=== PATIENT | female | born 1985 | race Asian ===

== ENCOUNTER 2020-08-09 19:42 | Emergency (ER) | payer OTHER ==
[~2020-08-09] VITALS: Ht 167.6 cm; Wt 47.6 kg
[2020-08-09] MEDS ORDERED: FOLIC ACID-VIT1 EACH PO (21:33)
[2020-08-09] MEDS ORDERED: FERROUS SULFAT325 MG PO (21:33)
[2020-08-09 21:49] VITALS: BP 118/84
== END 2020-08-09 21:49 | disposition home or self-care (01) ==
LOC: FSED 19:53
DX: R00.2 Palpitations (principal); D64.9 Anemia, unspecified
CPT/HCPCS: 71046; 80053; 81003; 81025; 82553; 84484; 85025; 93005; 99283